=== PATIENT | male | born 1995 ===

== ENCOUNTER 2024-01-02 22:03 | Emergency (ER) | payer SELFPAY ==
[~2024-01-02] VITALS: Ht 193 cm; Wt 103.2 kg
[2024-01-02 22:11] VITALS: BP 128/72; PULSE 128; RESP 26; TEMP 99; O2SAT 98
== END 2024-01-02 23:45 | disposition left against medical advice (07) ==
LOC: ER 22:05
DX: R53.1 Weakness (principal); Z53.21 Procedure and treatment not carried out due to patient leaving prior to being seen by health care provider
CPT/HCPCS: 93005; 99281